=== PATIENT | female | born 1995 | race Caucasian/White ===

== ENCOUNTER 2018-04-12 12:49 | Emergency (ER) | payer OTHER ==
[2018-04-12] MEDS: NS 1,000 ML IV (13:30)
[2018-04-12] MEDS: ONDANSETRON 4MG/2ML VIAL (J2405) IV (13:30)
[2018-04-12 13:38] LABS: BASO # 0.1 10^3/uL (0.0-0.2); BASO % 0.8 % (0.0-1.0); EOS % 0.1 % (0.0-3.0); HEMATOCRIT 40.5 % (36.0-47.0); HEMOGLOBIN 13.6 g/dl (12.0-15.5); IMMATURE GRANULOCYTE % 0.1 % (0-3.0); LYMPH # 3.5 10^3/uL (1.5-6.5); LYMPH % 47.7 % (24.0-44.0); MEAN CORPUSCULAR HEMOGLOBIN 29.2 pg (27.0-33.0); MEAN CORPUSCULAR HGB CONC 33.6 g/dl (32.0-36.5); MEAN CORPUSCULAR VOLUME 87.1 fl (80.0-96.0); MONO # 0.4 10^3/uL (0.0-0.8); MONO % 5.8 % (0.0-5.0); NEUTROPHILS # 3.3 10^3/uL (1.8-7.7); NEUTROPHILS % 45.5 % (36.0-66.0); PLATELET COUNT, AUTOMATED 329 10^3/uL (150-450); RED BLOOD COUNT 4.65 10^6/uL (4.00-5.40); RED CELL DISTRIBUTION WIDTH 12.9 % (11.5-14.5); WHITE BLOOD COUNT 7.3 10^3/uL (4.0-10.0)
[2018-04-12 14:06] LABS: ALBUMIN 4.3 GM/DL (3.2-5.2); ALBUMIN/GLOBULIN RATIO 1.43 (1.00-1.93); ALKALINE PHOSPHATASE 67 U/L (45-117); ALT/SGPT 25 U/L (12-78); ANION GAP 7 MEQ/L (8-16); AST/SGOT 14 U/L (7-37); BILIRUBIN,DIRECT < 0.1 MG/DL (0.0-0.2); BILIRUBIN,TOTAL 0.3 MG/DL (0.2-1.0); BLOOD UREA NITROGEN 8 MG/DL (7-18); CALCIUM LEVEL 8.8 MG/DL (8.5-10.1); CARBON DIOXIDE LEVEL 22 MEQ/L (21-32); CHLORIDE LEVEL 110 MEQ/L (98-107); CREATININE FOR GFR 0.66 MG/DL (0.55-1.30); GLUCOSE, FASTING 86 MG/DL (70-100); LIPASE 120 U/L (73-393); POTASSIUM SERUM 3.9 MEQ/L (3.5-5.1); SODIUM LEVEL 139 MEQ/L (136-145); TOTAL PROTEIN 7.3 GM/DL (6.4-8.2)
[2018-04-12 14:08] LABS: CONTROL LINE HCG INT CTR LINE PRESENT; HCG, SERUM QUALITATIVE NEGATIVE (NEGATIVE)
[2018-04-12] MEDS: MORPHINE 4 MG/ML 1ML VIAL/SYRINGE (J2270) IV (14:19)
[2018-04-12] MEDS ORDERED: ISOVUE-370 76% 100ML VIAL (Q9967) As Ordered (14:25)
[2018-04-12 15:30] LABS: KETONE, URINE AUTO RFX NEGATIVE (NEGATIVE); LEUKOCYTE ESTERASE UR AUTO RFX NEGATIVE (NEGATIVE); MUCUS, URINE RFX SMALL (NEGATIVE); NITRITE, URINE AUTO RFX NEGATIVE (NEGATIVE); RBC, URINE AUTO RFX 2 /HPF (0-3); SPECIFIC GRAVITY UR AUTO RFX 1.019 (1.002-1.035); SQUAM EPITHELIAL CELL UR AURFX 9 /HPF (0-6); WBC, URINE AUTO RFX 5 /HPF (0-3)
== END 2018-04-12 16:08 | disposition home or self-care (01) ==
LOC: M ED 12:49
DX: R10.11 Right upper quadrant pain (principal)
CPT/HCPCS: J2270

== ENCOUNTER 2018-04-19 09:34 | Emergency (ER) | payer OTHER ==
[2018-04-19 10:58] LABS: BASO # 0.1 10^3/uL (0.0-0.2); BASO % 0.4 % (0.0-1.0); EOS % 0.1 % (0.0-3.0); HEMATOCRIT 43.1 % (36.0-47.0); HEMOGLOBIN 14.2 g/dl (12.0-15.5); IMMATURE GRANULOCYTE % 0.3 % (0-3.0); LYMPH # 2.8 10^3/uL (1.5-6.5); LYMPH % 24.5 % (24.0-44.0); MEAN CORPUSCULAR HGB CONC 32.9 g/dl (32.0-36.5); MONO # 0.7 10^3/uL (0.0-0.8); MONO % 6.1 % (0.0-5.0); NEUTROPHILS # 7.9 10^3/uL (1.8-7.7); NEUTROPHILS % 68.6 % (36.0-66.0); PLATELET COUNT, AUTOMATED 328 10^3/uL (150-450); RED CELL DISTRIBUTION WIDTH 12.9 % (11.5-14.5); WHITE BLOOD COUNT 11.6 10^3/uL (4.0-10.0)
[2018-04-19] MEDS: ONDANSETRON 4MG/2ML VIAL (J2405) IV (11:37)
[2018-04-19] MEDS: MORPHINE 2 MG/ML 1ML SYRINGE (J2270) IV ×2 (11:38→12:30)
[2018-04-19] MEDS: NS 1,000 ML IV (11:38)
[2018-04-19 11:59] LABS: KETONE, URINE AUTO RFX NEGATIVE (NEGATIVE); LEUKOCYTE ESTERASE UR AUTO RFX NEGATIVE (NEGATIVE); MUCUS, URINE RFX SMALL (NEGATIVE); NITRITE, URINE AUTO RFX NEGATIVE (NEGATIVE); RBC, URINE AUTO RFX 1 /HPF (0-3); SPECIFIC GRAVITY UR AUTO RFX 1.019 (1.002-1.035); SQUAM EPITHELIAL CELL UR AURFX 3 /HPF (0-6); WBC, URINE AUTO RFX 2 /HPF (0-3)
[2018-04-19 12:28] LABS: ANION GAP 8 MEQ/L (8-16); BLOOD UREA NITROGEN 8 MG/DL (7-18); CALCIUM LEVEL 8.8 MG/DL (8.5-10.1); CARBON DIOXIDE LEVEL 24 MEQ/L (21-32); CHLORIDE LEVEL 108 MEQ/L (98-107); CREATININE FOR GFR 0.74 MG/DL (0.55-1.30); GLUCOSE, FASTING 87 MG/DL (70-100); POTASSIUM SERUM 3.6 MEQ/L (3.5-5.1); SODIUM LEVEL 140 MEQ/L (136-145)
[2018-04-19] MEDS ORDERED: ISOVUE-370 76% 100ML VIAL (Q9967) As Ordered (12:45)
[2018-04-19] MEDS: NORCO, ANEXSIA 5/325MG TABLET (HYDROcodone/ACETAMINOPHEN) PO (14:12)
== END 2018-04-19 14:15 | disposition home or self-care (01) ==
LOC: M ED 09:34
DX: R10.31 Right lower quadrant pain (principal); R11.2 Nausea with vomiting, unspecified; R19.7 Diarrhea, unspecified; Z79.3 Long term (current) use of hormonal contraceptives; Z88.8 Allergy status to other drugs, medicaments and biological substances
CPT/HCPCS: J2405

== ENCOUNTER 2020-03-26 13:15 | Emergency (ER) | payer OTHER ==
[~2020-03-26] VITALS: Ht 154.9 cm; Wt 55.0 kg
[~2020-03-26 13:15] MED LIST: DICY1CAP8 PO; PERC5TAB12 PO; ZOFR4TAB14 PO
[2020-03-26] MEDS ORDERED: MORPHINE 2 MG/ML 1ML VIAL (J2270) IV PRN (13:30)
[2020-03-26] MEDS ORDERED: ONDANSETRON 4MG/2ML VIAL IV ONE (13:45)
[2020-03-26] MEDS ORDERED: NS 1,000 ML IV ONE ×2 (13:45→16:30)
[2020-03-26] MEDS ORDERED: ALPR1TAB3 PO (13:48)
[2020-03-26] MEDS ORDERED: PRAZ2CAP PO (13:48)
[2020-03-26] MEDS ORDERED: PRAZ1CAP PO (13:48)
[2020-03-26] MEDS ORDERED: VALP250S PO (13:48)
[2020-03-26 13:49] LABS: BASO # 0.1 10^3/uL (0.0-0.2); BASO % 0.6 % (0.0-1.0); HEMATOCRIT 44.6 % (36.0-47.0); LYMPH # 3.2 10^3/uL (1.5-5.0); LYMPH % 29.9 % (24.0-44.0); MEAN CORPUSCULAR HEMOGLOBIN 30.7 pg (27.0-33.0); MEAN CORPUSCULAR HGB CONC 33.6 g/dl (32.0-36.5); MEAN CORPUSCULAR VOLUME 91.2 fl (80.0-96.0); MONO # 0.6 10^3/uL (0.0-0.8); MONO % 5.8 % (0.0-5.0); NEUTROPHILS # 6.8 10^3/uL (1.5-8.5); NEUTROPHILS % 63.3 % (36.0-66.0); PLATELET COUNT, AUTOMATED 285 10^3/uL (150-450); RED BLOOD COUNT 4.89 10^6/uL (4.00-5.40); WHITE BLOOD COUNT 10.7 10^3/uL (4.0-10.0)
[2020-03-26] MEDS ORDERED: ISOVUE-370 76% 100ML VIAL As Ordered ONE (13:52)
[2020-03-26 14:00] LABS: INR 1.07; PROTHROMBIN TIME 14.1 SECONDS (12.5-14.3)
[2020-03-26 14:01] LABS: PARTIAL THROMBOPLASTIN TIME 27.9 SECONDS (24.2-38.5)
--- NOTE | 2020-03-26 14:33 | REP ---
INDICATION: Trauma. COMPARISON: Comparison CT study February 12, 2013.. TECHNIQUE: Helical scanning is acquired. 5 mm axial images were reformatted. Coronal MPR images were generated. FINDINGS: Bone window settings demonstrate an intact bony calvarium. There is no evidence of skull fracture or incidental bony calvarial lesion. The visualized paranasal sinuses appear clear. No intraorbital abnormality is seen. On soft tissue window setting images; the lateral, third, and fourth ventricles are normal in size and position. Villarrela-white differentiation pattern is normal above and below the tentorium. There are is no evidence of intracranial hemorrhage. No mass, edema, infarction, or midline shift is seen. No extra-axial fluid collection is appreciated. Preliminary director of scientific research views demonstrate intraoral Jewel Re. IMPRESSION: Negative noncontrast head CT. <Electronically signed by Nathan Luz > 03/26/20 [id number]
--- NOTE | 2020-03-26 14:34 | REP ---
INDICATION: Trauma. COMPARISON: None. TECHNIQUE: Helical scanning is acquired and overlapping 2 mm high resolution axial images were generated and reviewed at bone and soft tissue window settings. Coronal and sagittal multiplanar re-formations images are generated. FINDINGS: There is no evidence of cervical spine element fracture. No skull base fracture is seen. Cervical vertebral body heights are preserved. Alignment is normal. Facet joints are normally aligned bilaterally at each cervical level on multiplanar re-formations images. There is no evidence of intraspinal or paraspinal hematoma. No extra vertebral abnormality is seen. IMPRESSION: Negative CT study of the cervical spine without contrast. No fracture seen. <Electronically signed by Nathan Luz > 03/26/20 [id number]
--- NOTE | 2020-03-26 14:38 | REP ---
INDICATION: TRAUMA. COMPARISON: Comparison is made with imaging from CT study of the abdomen April 19, 2018. Intravenous contrast was administered.. TECHNIQUE: Helical scanning is acquired and 4 mm axial images re-formatted. Coronal and sagittal MPR images are generated and reviewed. FINDINGS: There is a mild levoconvex curve in the lumbar spine. Lumbar vertebral body heights are preserved. No fracture or collapse is seen. There is no evidence of spondylolysis or spondylolisthesis. There is partial lumbarization of S1. There is no posterior element or pedicle fracture. Transverse processes appear and spinous processes appear intact. No paravertebral soft tissue hematoma is seen. There is a hypoplastic rib on the left at L1. No sacral fracture is seen. IMPRESSION: No traumatic abnormality noted. Mild levoconvex curvature. <Electronically signed by Nathan Luz > 03/26/20 [id number]
--- NOTE | 2020-03-26 14:41 | REP ---
INDICATION: TRAUMA. COMPARISON: None. TECHNIQUE: Helical scanning is acquired and 4 mm axial images are generated. Coronal and sagittal MPR images are generated. Intravenous contrast has been administered. FINDINGS: There is a mild dextroconvex curvature in the thoracic spine. Thoracic vertebral body heights are preserved. Alignment is otherwise normal. No fracture is seen. Pedicles and posterior elements are intact. The visualized posterior ribs appear intact. No paravertebral soft tissue edema or hematoma is seen. There is a hypoplastic rib on the left side at L1. IMPRESSION: No thoracic spine fracture or subluxation is seen. <Electronically signed by Nathan Luz > 03/26/20 [id number]
--- NOTE | 2020-03-26 14:43 | REP ---
INDICATION: Trauma. COMPARISON: None. TECHNIQUE: CT chest performed following the intravenous administration of 100 cc of Isovue 370. Sagittal and coronal reconstruction images are performed. FINDINGS: Lungs: There is mild hazy atelectasis or infiltrate anteriorly in the right upper lobe. No pneumothorax. Mediastinum: No adenopathy. Mild anterior thymic tissue. Shaneka: No adenopathy. Axilla: No adenopathy. Pleura: No effusion. Heart: Not enlarged. Thoracic aorta: No aneurysm or dissection. Visualized osseous structures: There is no fracture of the visualized osseous structures. IMPRESSION: Mild hazy atelectasis or infiltrate anterior right upper lobe. <Electronically signed by Art Villarreal > 03/26/20 [id number]
--- NOTE | 2020-03-26 14:51 | REP ---
INDICATION: RUQ, LUQ abdominal pain. COMPARISON: 04/19/2018 CT TECHNIQUE: Bolus of 100 mL Isovue 370 scanning through the abdomen pelvis with coronal and sagittal reconstructions. FINDINGS: CT abdomen: The lung bases are clear. Heart is not enlarged. There is no pericardial thickening or effusion and no hiatal hernia. The liver, spleen, gallbladder and pancreas are without any acute finding. No biliary dilatation no evidence of ascites or free air in the upper abdomen. Stomach shows small amount of retained fluid but no abnormal distention or wall thickening adrenal glands are normal kidneys show symmetric enhancement without mass, stone, cyst or hydronephrosis. Aorta is unremarkable small bowel loops are fluid-filled without dilatation or air-fluid level. Abdominal portion of the colon show no sign of colitis diverticulitis or mass. The aorta and branch is unremarkable. The bony structures show lumbar and lower thoracic vertebral levels without compression fracture or destructive lesion no spondylolysis or spondylolisthesis. Lower ribs included were unremarkable. There is a levoconvex curvature to the lumbar spine which may be positional. CT pelvis sacrum, SI joints, bony pelvis and hips are without fracture or acute finding there is sacralization of the transverse processes of L5 as anatomic variation. Bladder well distended. Small amount of air seen in the bladder may reflect recent catheterization versus infection with gas producing organisms I see no evidence for penetrating trauma. Is no ventral or inguinal hernia or pathologic sized inguinal adenopathy. Uterus tilted towards the left no pelvic or adnexal mass or free fluid I see no pelvic lymphadenopathy. There are no inflammatory changes about the cecum and the appendix seen and normal small bowel loops in the deep pelvis were unremarkable abdominal and pelvic portions of colon were likewise unremarkable IMPRESSION: 1. Negative CT abdomen for solid organ injury, abdominal or pelvic free air or ascites nor any focal/acute bone abnormality. 2. Small amount of air within the bladder may be related to recent catheterization or infection with gas-forming organism. No evidence for penetrating trauma. 3. No hydronephrosis renal contusion or other acute finding. <Electronically signed by Saurabh Anthony > 03/26/20 [id number]
[2020-03-26] MEDS ORDERED: ACETAMINOPHEN 500 MG TAB PO ONE (15:00)
[2020-03-26 15:26] LABS: ALBUMIN 4.1 GM/DL (3.2-5.2); ALT/SGPT 14 U/L (12-78); BILIRUBIN,DIRECT 0.2 MG/DL (0.0-0.2); BILIRUBIN,TOTAL 0.9 MG/DL (0.2-1.0); ETHYL ALCOHOL (ETHANOL) < 0.003 % (0.000-0.010); TOTAL PROTEIN 7.1 GM/DL (6.4-8.2)
[2020-03-26 15:33] LABS: APPEARANCE, URINE CLEAR (CLEAR); BACTERIA, URINE AUTO NEGATIVE (NEGATIVE); BILIRUBIN, URINE AUTO NEGATIVE (NEGATIVE); BLOOD, URINE BLOOD NEGATIVE (NEGATIVE); COLOR, URINE STRAW (YELLOW); GLUCOSE, URINE (UA) AUTO NEGATIVE (NEGATIVE); KETONE, URINE AUTO NEGATIVE (NEGATIVE); LEUKOCYTE ESTERASE, URINE AUTO NEGATIVE (NEGATIVE); NITRITE, URINE AUTO NEGATIVE (NEGATIVE); PROTEIN, URINE AUTO NEGATIVE (NEGATIVE); RBC, URINE AUTO 1 /HPF (0-3); SPECIFIC GRAVITY URINE AUTO 1.029 (1.002-1.035); SQUAMOUS EPITHELIAL CELL UR AU 0 /HPF (0-6); UROBILINOGEN, URINE AUTO 0.2 mg/dL (0.0-2.0); WBC, URINE AUTO 0 /HPF (0-3)
[2020-03-26 16:06] LABS: AMPHETAMINES LEVEL URINE NEGATIVE (NEGATIVE); BARBITURATES URINE NEGATIVE (NEGATIVE); BENZODIAZEPINES URINE POSITIVE (NEGATIVE); CANNABINOIDS URINE POSITIVE (NEGATIVE); COCAINE METABOLITE URINE POSITIVE (NEGATIVE); METHADONE URINE NEGATIVE (NEGATIVE); OPIATES URINE POSITIVE (NEGATIVE); PHENCYCLIDINE URINE NEGATIVE (NEGATIVE)
[2020-03-26 17:31] VITALS: BP 99/68
--- NOTE | 2020-03-27 09:27 | ECGEPIP ---
[facility] - ED Test Date: 2020-03-26 Pat Name: GEN CORNEJO Department: Room: - Gender: Female Presser Hand: : [id number] Requested By: CESAR PRATT Order Number: [id number] Reading MD: Jesse Fleming Measurements Intervals [place] Rate: 76 P: 6 HI: 151 QRS: 61 QRSD: 105 T: 47 QT: 382 QTc: 431 Interpretive Statements SINUS RHYTHM INCOMPLETE RIGHT BUNDLE BRANCH BLOCK NO PRIORS FOR COMPARISON Electronically Signed on 03-27-2020 9:26:50 EST by Jesse Fleming
== END 2020-03-26 17:54 | disposition home or self-care (01) ==
LOC: M ED 13:15 → EDBD 13:15 → M ED 17:54
DX: S06.0X0A Concussion without loss of consciousness, initial encounter (principal); S30.1XXA Contusion of abdominal wall, initial encounter; S20.219A Contusion of unspecified front wall of thorax, initial encounter; V49.40XA Driver injured in collision with unspecified motor vehicles in traffic accident, initial encounter; I45.10 Unspecified right bundle-branch block; F31.9 Bipolar disorder, unspecified; Z88.8 Allergy status to other drugs, medicaments and biological substances; Z79.899 Other long term (current) drug therapy
CPT/HCPCS: 70450; 71260; 72125; 72128; 72131; 74177; 80047; 80076; 80307; 81001; 83605; 84702; 85025; 85610; 85730; 86850; 86900; 86901; 93005; 93041; 94760; 96361; 96374; 96375; 99285; G0480; J2270; J2405; Q9967

== ENCOUNTER 2021-12-16 19:09 | Emergency (ER) | payer OTHER, SELFPAY ==
[~2021-12-16] VITALS: Ht 154.9 cm; Wt 54.5 kg
[~2021-12-16 19:09] MED LIST changes: +ALPR1TAB3 PO; +PRAZ1CAP PO; +PRAZ2CAP PO; +VALP250S PO
[2021-12-16 19:10] VITALS: BP 177/79
[2021-12-16] MEDS ORDERED: NS 1,000 ML IV ONE (22:00)
[2021-12-16] MEDS ORDERED: ONDANSETRON 4MG 2ML VIAL IV ONE (22:00)
[2021-12-16 22:27] LABS: BASO % 0.2 % (0.0-1.0); HEMATOCRIT 48.2 % (36.0-47.0); HEMOGLOBIN 16.5 g/dl (12.0-15.5); LYMPH % 6.9 % (24.0-44.0); MEAN CORPUSCULAR HEMOGLOBIN 30.9 pg (27.0-33.0); MEAN CORPUSCULAR HGB CONC 34.2 g/dl (32.0-36.5); MEAN CORPUSCULAR VOLUME 90.3 fl (80.0-96.0); MONO # 0.8 10^3/uL (0.0-0.8); MONO % 5.5 % (2.0-8.0); NEUTROPHILS # 12.7 10^3/uL (1.5-8.5); NEUTROPHILS % 87.1 % (36.0-66.0); PLATELET COUNT, AUTOMATED 299 10^3/uL (150-450); RED BLOOD COUNT 5.34 10^6/uL (4.00-5.40); WHITE BLOOD COUNT 14.6 10^3/uL (4.0-10.0)
[2021-12-16] MEDS ORDERED: HALOPERIDOL 5MG/ML VIAL (J1630 PER 1) IV ONE (23:00)
[2021-12-16 23:08] LABS: ALT/SGPT 25 IU/L (0-32)
[2021-12-16 23:09] LABS: ALBUMIN 4.2 GM/DL (3.2-5.2); BILIRUBIN,DIRECT < 0.1 MG/DL (0.0-0.2); BILIRUBIN,TOTAL 0.4 MG/DL (0.2-1.0); TOTAL PROTEIN 8.1 GM/DL (6.4-8.2)
[2021-12-16 23:10] LABS: LIPASE 45 U/L (73-393)
[2021-12-16] MEDS ORDERED: diphenhydrAMINE 50MG/ML VIAL (J1200) IV ONE (23:55)
[2021-12-16] MEDS ORDERED: DICYCLOMINE INJ 20MG/2ML (J0500) IM ONE (23:55)
== END 2021-12-17 00:46 | disposition home or self-care (01) ==
LOC: M ED 19:09
DX: F12.188 Cannabis abuse with other cannabis-induced disorder (principal); K21.9 Gastro-esophageal reflux disease without esophagitis; F17.200 Nicotine dependence, unspecified, uncomplicated; Z88.8 Allergy status to other drugs, medicaments and biological substances; Z88.6 Allergy status to analgesic agent
CPT/HCPCS: 80047; 80076; 83690; 84702; 85025; 96361; 96372; 96374; 96375; 99283; J0500; J1200; J1630; J2405

== ENCOUNTER 2022-04-01 14:15 | Emergency (ER) | payer OTHER | END 2022-04-01 14:46 | disposition left against medical advice (07) | LOC: EDBD 14:15 → M ED 14:15 | DX: Z53.21 Procedure and treatment not carried out due to patient leaving prior to being seen by health care provider (principal) ==

== ENCOUNTER → 2022-05-05 | Outpatient (CLI) | payer OTHER | LOC: M PLALAB 14:02 | PROVIDERS: ATTEND Advanced Practice Midwife | DX: O28.5 Abnormal chromosomal and genetic finding on antenatal screening of mother (principal); Z3A.00 Weeks of gestation of pregnancy not specified ==

== ENCOUNTER → 2022-05-13 | Outpatient (CLI) | payer OTHER ==
[2022-05-13 16:19] LABS: HEMATOCRIT 39.7 % (36.0-47.0); HEMOGLOBIN 13.2 g/dl (12.0-15.5); MEAN CORPUSCULAR HEMOGLOBIN 31.1 pg (27.0-33.0); MEAN CORPUSCULAR HGB CONC 33.2 g/dl (32.0-36.5); MEAN CORPUSCULAR VOLUME 93.6 fl (80.0-96.0); PLATELET COUNT, AUTOMATED 273 10^3/uL (150-450); RED BLOOD COUNT 4.24 10^6/uL (4.00-5.40); WHITE BLOOD COUNT 8.1 10^3/uL (4.0-10.0)
[2022-05-13 17:04] LABS: HIV 1&2 SCREEN CENTAUR NEGATIVE (NEGATIVE)
[2022-05-13 17:13] LABS: HEPATITIS C VIRUS ABY INDEX 0.1 INDEX (<0.8)
[2022-05-13 17:41] LABS: HEMOGLOBIN A1c 4.6 % (4.0-6.0)
== END ==
LOC: M PLALAB 12:34
PROVIDERS: ATTEND Advanced Practice Midwife
DX: Z34.91 Encounter for supervision of normal pregnancy, unspecified, first trimester (principal); Z3A.00 Weeks of gestation of pregnancy not specified

== ENCOUNTER → 2022-07-09 | Outpatient (REF) | payer OTHER ==
[2022-07-09 16:16] LABS: GC DNA AMPLIFICATION NEGATIVE (NEGATIVE)
== END ==
LOC: M SFHCWAGY 13:01
PROVIDERS: ATTEND Advanced Practice Midwife
DX: Z34.91 Encounter for supervision of normal pregnancy, unspecified, first trimester (principal)

== ENCOUNTER → 2022-07-09 | Outpatient (CLI) | payer OTHER | LOC: M WHC 10:58 | PROVIDERS: ATTEND Advanced Practice Midwife | DX: Z34.82 Encounter for supervision of other normal pregnancy, second trimester (principal); Z3A.20 20 weeks gestation of pregnancy ==

== ENCOUNTER → 2022-09-09 | Outpatient (CLI) | payer OTHER | LOC: M LAB 07:31 | PROVIDERS: ATTEND Obstetrics & Gynecology | DX: Z34.92 Encounter for supervision of normal pregnancy, unspecified, second trimester (principal) ==

== ENCOUNTER 2022-10-17 07:10 | Outpatient (CLI) | payer OTHER ==
[~2022-10-17] VITALS: Ht 154.9 cm; Wt 64.0 kg
[2022-10-17 07:14] VITALS: BP 107/70
[2022-10-17 07:24] VITALS: BP 107/70
[2022-10-17] MEDS ORDERED: OMEP10CASR PO (07:39)
[2022-10-17] MEDS ORDERED: REGL10TA6 PO (07:39)
[2022-10-17] MEDS ORDERED: PRENTAB9 PO (07:39)
[2022-10-17] MEDS ORDERED: HOME MED LIST COMPLETE! XX SCH (07:40)
[2022-10-17 08:57] LABS: HEMATOCRIT 37.4 % (36.0-47.0); HEMOGLOBIN 12.5 g/dl (12.0-15.5); MEAN CORPUSCULAR HEMOGLOBIN 31.3 pg (27.0-33.0); MEAN CORPUSCULAR HGB CONC 33.4 g/dl (32.0-36.5); MEAN CORPUSCULAR VOLUME 93.5 fl (80.0-96.0); PLATELET COUNT, AUTOMATED 284 10^3/uL (150-450); WHITE BLOOD COUNT 9.3 10^3/uL (4.0-10.0)
[2022-10-17 09:25] LABS: ALBUMIN 2.9 G/DL (3.2-5.2); ALKALINE PHOSPHATASE 105 U/L (46-116); ALT/SGPT 13 U/L (7.0-40); AST/SGOT 27 U/L (<34); BILIRUBIN,TOTAL 0.3 MG/DL (0.3-1.2); BLOOD UREA NITROGEN < 5 MG/DL (9-23); CALCIUM LEVEL 8.2 MG/DL (8.5-10.1); CARBON DIOXIDE LEVEL 21 MMOL/L (20-31); CHLORIDE LEVEL 107 MMOL/L (98-107); CREATININE FOR GFR 0.41 MG/DL (0.55-1.30); GLOMERULAR FILTRATION RATE > 60.0 (>60); GLUCOSE, FASTING 90 MG/DL (60-100); POTASSIUM SERUM 4.5 MMOL/L (3.5-5.1); SODIUM LEVEL 138 MMOL/L (136-145); TOTAL PROTEIN 5.9 G/DL (5.7-8.2)
== END 2022-10-17 13:00 | disposition home or self-care (01) ==
LOC: M LDO 07:10
PROVIDERS: ATTEND Advanced Practice Midwife
DX: O99.613 Diseases of the digestive system complicating pregnancy, third trimester (principal); K31.84 Gastroparesis; Z3A.34 34 weeks gestation of pregnancy
CPT/HCPCS: 59025; 80053; 81001; 85027; G0463

== ENCOUNTER 2022-10-28 11:46 | Outpatient (CLI) | payer OTHER ==
[~2022-10-28] VITALS: Ht 154.9 cm; Wt 62.4 kg
[~2022-10-28 11:46] MED LIST changes: +OMEP10CASR PO; +PRENTAB9 PO; +REGL10TA6 PO
[2022-10-28 12:04] VITALS: BP 115/74
[2022-10-28] MEDS ORDERED: HOME MED LIST COMPLETE! XX SCH (12:05)
[2022-10-28] MEDS ORDERED: ONDANSETRON 4MG 2ML VIAL IV ONE ×2 (12:20→15:45)
[2022-10-28] MEDS ORDERED: LACTATED RINGER'S 1000 ML IV STA (12:20)
[2022-10-28] MEDS ORDERED: LR 1,000 ML IV SCH (12:20)
[2022-10-28 12:59] LABS: BASO # 0.1 10^3/uL (0.0-0.2); BASO % 0.5 % (0.0-1.0); EOS % 0.2 % (0.0-3.0); HEMATOCRIT 39.9 % (36.0-47.0); HEMOGLOBIN 13.7 g/dl (12.0-15.5); LYMPH # 2.2 10^3/uL (1.5-5.0); LYMPH % 19.7 % (24.0-44.0); MEAN CORPUSCULAR HEMOGLOBIN 31.9 pg (27.0-33.0); MEAN CORPUSCULAR HGB CONC 34.3 g/dl (32.0-36.5); MEAN CORPUSCULAR VOLUME 92.8 fl (80.0-96.0); MONO # 0.5 10^3/uL (0.0-0.8); MONO % 4.5 % (2.0-8.0); NEUTROPHILS # 8.3 10^3/uL (1.5-8.5); NEUTROPHILS % 74.4 % (36.0-66.0); PLATELET COUNT, AUTOMATED 305 10^3/uL (150-450); WHITE BLOOD COUNT 11.2 10^3/uL (4.0-10.0)
[2022-10-28 13:08] LABS: APPEARANCE, URINE HAZY (CLEAR); BACTERIA, URINE AUTO 1+ (NEGATIVE); BILIRUBIN, URINE AUTO NEGATIVE (NEGATIVE); BLOOD, URINE BLOOD NEGATIVE (NEGATIVE); COLOR, URINE AMBER (YELLOW); GLUCOSE, URINE (UA) AUTO NEGATIVE (NEGATIVE); KETONE, URINE AUTO 2+ mg/dL (NEGATIVE); LEUKOCYTE ESTERASE, URINE AUTO NEGATIVE (NEGATIVE); MUCUS, URINE SMALL (NEGATIVE); NITRITE, URINE AUTO NEGATIVE (NEGATIVE); PROTEIN, URINE AUTO 1+ mg/dL (NEGATIVE); RBC, URINE AUTO 0 /HPF (0-3); SPECIFIC GRAVITY URINE AUTO 1.021 (1.002-1.035); SQUAMOUS EPITHELIAL CELL UR AU 21 /HPF (0-6); WBC, URINE AUTO 1 /HPF (0-3)
[2022-10-28 13:26] LABS: LIPASE 25 U/L (12-53)
[2022-10-28 13:28] LABS: ALBUMIN 3.3 G/DL (3.2-5.2); ALKALINE PHOSPHATASE 141 U/L (46-116); ALT/SGPT 11 U/L (7.0-40); AST/SGOT 10 U/L (<34); BILIRUBIN,TOTAL 0.6 MG/DL (0.3-1.2); BLOOD UREA NITROGEN 5 MG/DL (9-23); CALCIUM LEVEL 8.5 MG/DL (8.5-10.1); CARBON DIOXIDE LEVEL 21 MMOL/L (20-31); CHLORIDE LEVEL 106 MMOL/L (98-107); CREATININE FOR GFR 0.43 MG/DL (0.55-1.30); GLOMERULAR FILTRATION RATE > 60.0 (>60); GLUCOSE, FASTING 81 MG/DL (60-100); POTASSIUM SERUM 3.8 MMOL/L (3.5-5.1); SODIUM LEVEL 138 MMOL/L (136-145); TOTAL PROTEIN 6.3 G/DL (5.7-8.2)
[2022-10-28 16:58] LABS: AMPHETAMINES URINE REFLEX NEGATIVE (NEGATIVE); BENZODIAZEPINES URINE REFLEX NEGATIVE (NEGATIVE)
[2022-10-28 16:59] LABS: BARBITURATES URINE REFLEX NEGATIVE (NEGATIVE); METHADONE URINE REFLEX NEGATIVE (NEGATIVE); OPIATES URINE REFLEX NEGATIVE (NEGATIVE); PHENCYCLIDINE URINE REFLEX NEGATIVE (NEGATIVE)
[2022-10-28 17:04] LABS: CANNABINOIDS URINE REFLEX PENDING CONFIRMATION (NEGATIVE); COCAINE METABOLITE URINE REFLE PENDING CONFIRMATION (NEGATIVE)
[2022-10-28] MEDS ORDERED: PROM1SUP2 PR (19:51)
[2022-10-28] MEDS ORDERED: CYCL-707 PO (19:52)
[2022-10-29 00:05] LABS: GC DNA AMPLIFICATION NEGATIVE (NEGATIVE)
== END 2022-10-28 20:00 | disposition home or self-care (01) ==
LOC: M LDO 11:46
PROVIDERS: ATTEND Specialist
DX: O21.8 Other vomiting complicating pregnancy (principal); O34.219 Maternal care for unspecified type scar from previous cesarean delivery; Z3A.36 36 weeks gestation of pregnancy
CPT/HCPCS: 36415; 76815; 76820; 80053; 80307; 81001; 83690; 85025; 87810; 87850; G0480; J2405

== ENCOUNTER → 2022-10-29 | Outpatient (REF) | payer OTHER ==
[~2022-10-29] MED LIST changes: +CYCL-707 PO; +PROM1SUP2 PR
== END ==
LOC: M PLALAB 12:46
PROVIDERS: ATTEND Obstetrics & Gynecology
DX: Z34.80 Encounter for supervision of other normal pregnancy, unspecified trimester (principal)

== ENCOUNTER 2022-11-01 15:04 | Inpatient (IN) | payer OTHER ==
[~2022-11-01] VITALS: Ht 154.9 cm; Wt 65.3 kg
[2022-11-01] VITALS (9 sets, daily range): BP systolic 100–124; BP diastolic 57–85; TEMP 96.7; O2SAT 98
[2022-11-01] MEDS ORDERED: HOME MED LIST COMPLETE! XX SCH (15:45)
[2022-11-01] MEDS ORDERED: LACTATED RINGER'S 1000 ML IV STA (16:07)
[2022-11-01] MEDS ORDERED: BICITRA 30ML SOLN UDC PO ONE (16:10)
[2022-11-01] MEDS ORDERED: METHYLERGONOVINE MALEATE 0.2MG/ML 1ML VIAL IM PRN (16:10)
[2022-11-01] MEDS ORDERED: OXYTOCIN DRIP 30 UNITS in IV 1 EA IV PRN (16:10)
[2022-11-01] MEDS ORDERED: LIDOCAINE 1% MDV 20ML VIAL INFIL PRN (16:10)
[2022-11-01] MEDS ORDERED: ACETAMINOPHEN 650MG SUPP PR ONE (16:10)
[2022-11-01] MEDS ORDERED: TRANEXAMIC ACID INJection 1,000 MG in NS 100 ML IV PRN (16:10)
[2022-11-01] MEDS ORDERED: LR 1,000 ML IV SCH ×2 (16:10→21:15)
[2022-11-01 16:56] LABS: HEMATOCRIT 37.7 % (36.0-47.0); MEAN CORPUSCULAR HEMOGLOBIN 31.7 pg (27.0-33.0); MEAN CORPUSCULAR HGB CONC 34.5 g/dl (32.0-36.5); PLATELET COUNT, AUTOMATED 317 10^3/uL (150-450); WHITE BLOOD COUNT 11.6 10^3/uL (4.0-10.0)
[2022-11-01] MEDS ORDERED: AZITHROMYCIN INJ 500 MG, VIAL MATE ADAPTER 1 EACH in NS 250 ML IV ONE (17:00)
[2022-11-01] MEDS ORDERED: ceFAZolin SOD 2 GM in IV 1 EA IV ONE (17:00)
[2022-11-01 17:17] LABS: AMPHETAMINES URINE REFLEX NEGATIVE (NEGATIVE); BARBITURATES URINE REFLEX NEGATIVE (NEGATIVE); BENZODIAZEPINES URINE REFLEX NEGATIVE (NEGATIVE); COCAINE METABOLITE URINE REFLE NEGATIVE (NEGATIVE); METHADONE URINE REFLEX NEGATIVE (NEGATIVE); OPIATES URINE REFLEX NEGATIVE (NEGATIVE); PHENCYCLIDINE URINE REFLEX NEGATIVE (NEGATIVE)
[2022-11-01 17:30] LABS: CANNABINOIDS URINE REFLEX PENDING CONFIRMATION (NEGATIVE)
[2022-11-01] MEDS ORDERED: ePHEDrine SULFATE 25 MG/5 ML(5MG/ML) SYRINGE As Ordered ONE (20:06)
[2022-11-01] MEDS ORDERED: ONDANSETRON 4MG 2ML VIAL As Ordered ONE (20:37)
[2022-11-01 20:41] LABS: CORD GAS O2 SAT A 41.5 %; CORD GAS PCO2 A 50.7 mmHg; CORD GAS PH A 7.293 UNITS; CORD GAS PO2 A 18.3 mmHg; CORD GAS SBC A 20.7 MMOL/L; CORD GAS TCO2 A 25.6 MMOL/L
[2022-11-01] MEDS ORDERED: MIDAZOLAM INJ 2MG/2ML VIAL As Ordered ONE (20:41)
[2022-11-01 20:45] LABS: CORD GAS ABE V -2.8; CORD GAS O2 SAT V 78.6 %; CORD GAS PCO2 V 38.7 mmHg; CORD GAS PH V 7.373 UNITS; CORD GAS PO2 V 33.3 mmHg; CORD GAS SBC V 21.7 MMOL/L; CORD GAS TCO2 V 23.2 MMOL/L
[2022-11-01] MEDS ORDERED: MORPHINE PRES-FREE INJ 10 MG/10 ML VIAL As Ordered ONE (21:04)
[2022-11-01] MEDS ORDERED: ANUSOL HC CREAM 30GM TOP PRN (21:15)
[2022-11-01] MEDS ORDERED: ONDANSETRON 4MG 2ML VIAL IV PRN (21:15)
[2022-11-01] MEDS ORDERED: METOCLOPRAMIDE INJ 10MG/2ML VIAL IV PRN ×2 (21:15→21:50)
[2022-11-01] MEDS ORDERED: RHOGAM 300MCG (1500IU) INJ IM SCH (21:15)
[2022-11-01] MEDS ORDERED: OXYTOCIN DRIP 30 UNITS in IV 1 EA IV SCH (21:15)
[2022-11-01] MEDS ORDERED: **NOTE PATIENT COMMENT** MISC XX SCH (21:50)
[2022-11-01] MEDS ORDERED: NALOXONE INJ 0.4MG/1ML VIAL IV PRN ×2 (21:50)
[2022-11-01] MEDS ORDERED: diphenhydrAMINE 50MG/ML VIAL IV PRN (21:50)
[2022-11-01] MEDS ORDERED: MORPHINE 2 MG/ML 1ML VIAL IV PRN (23:30)
[2022-11-01] MEDS ORDERED: PERCOCET 5MG/325MG TAB PO PRN (23:30)
[2022-11-02 00:02] VITALS: BP 116/71; O2SAT 98
[2022-11-02] MEDS ORDERED: ONDANSETRON 4MG ORAL DISINTEGRATING TAB SL PRN (01:10)
[2022-11-02 02:00] VITALS: BP 113/76
[2022-11-02] MEDS: ACETAMINOPHEN 500 MG TAB PO PRN ×2 (02:01→16:30)
[2022-11-02] MEDS: SLF 3 ML SYR IV SCH ×3 (04:48→12:37)
[2022-11-02] MEDS: PERCOCET 5MG/325MG TAB PO PRN ×3 (05:33→18:03)
[2022-11-02 06:00] VITALS: BP 109/72; O2SAT 97
[2022-11-02] MEDS: PRENATAL VITAMINS CHEWABLE TABLET PO SCH (08:05)
[2022-11-02] MEDS: METOCLOPRAMIDE 5 MG TAB PO SCH ×4 (08:05→21:06)
[2022-11-02] MEDS: DOCUSATE SODIUM 100MG CAPSULE PO SCH ×2 (08:06→21:06)
[2022-11-02] MEDS ORDERED: OMEPRAZOLE 20MG CAP PO SCH (09:00)
[2022-11-02 18:00] VITALS: BP 106/57; O2SAT 94
[2022-11-02] MEDS: OMEPRAZOLE 20MG CAP PO SCH (21:06)
[2022-11-03] MEDS: PERCOCET 5MG/325MG TAB PO PRN ×4 (00:14→18:23)
[2022-11-03] MEDS: SIMETHICONE 80MG CHEW TAB PO PRN ×2 (05:41→12:24)
[2022-11-03 06:00] VITALS: BP 117/60; O2SAT 98
[2022-11-03] MEDS: METOCLOPRAMIDE 5 MG TAB PO SCH ×4 (08:54→20:45)
[2022-11-03] MEDS: DOCUSATE SODIUM 100MG CAPSULE PO SCH ×2 (08:54→20:45)
[2022-11-03] MEDS: PRENATAL VITAMINS CHEWABLE TABLET PO SCH (08:55)
[2022-11-03] MEDS ORDERED: MEASLES,MUMPS,RUBELLA VACCINE INJ (MMR-II) SC.IMMUN ONE (09:00)
[2022-11-03 12:21] LABS: BASO # 0.1 10^3/uL (0.0-0.2); BASO % 0.4 % (0.0-1.0); EOS # 0.1 10^3/uL (0.0-0.5); EOS % 1.1 % (0.0-3.0); HEMATOCRIT 38.3 % (36.0-47.0); HEMOGLOBIN 13.1 g/dl (12.0-15.5); LYMPH % 26.7 % (24.0-44.0); MEAN CORPUSCULAR HEMOGLOBIN 31.5 pg (27.0-33.0); MEAN CORPUSCULAR HGB CONC 34.2 g/dl (32.0-36.5); MEAN CORPUSCULAR VOLUME 92.1 fl (80.0-96.0); MONO % 8.5 % (2.0-8.0); NEUTROPHILS # 7.1 10^3/uL (1.5-8.5); NEUTROPHILS % 62.9 % (36.0-66.0); PLATELET COUNT, AUTOMATED 298 10^3/uL (150-450); RED BLOOD COUNT 4.16 10^6/uL (4.00-5.40); WHITE BLOOD COUNT 11.3 10^3/uL (4.0-10.0)
[2022-11-03 12:47] LABS: ALKALINE PHOSPHATASE 139 U/L (46-116); ALT/SGPT 17 U/L (7.0-40); AST/SGOT 25 U/L (<34); BILIRUBIN,TOTAL 0.6 MG/DL (0.3-1.2); BLOOD UREA NITROGEN 6 MG/DL (9-23); CALCIUM LEVEL 8.8 MG/DL (8.5-10.1); CARBON DIOXIDE LEVEL 26 MMOL/L (20-31); CHLORIDE LEVEL 105 MMOL/L (98-107); CREATININE FOR GFR 0.49 MG/DL (0.55-1.30); GLOMERULAR FILTRATION RATE > 60.0 (>60); GLUCOSE, FASTING 80 MG/DL (60-100); POTASSIUM SERUM 3.9 MMOL/L (3.5-5.1); SODIUM LEVEL 137 MMOL/L (136-145)
[2022-11-03 16:49] VITALS: BP 112/79; O2SAT 99
[2022-11-03] MEDS: OMEPRAZOLE 20MG CAP PO SCH (20:45)
[2022-11-04] MEDS: PERCOCET 5MG/325MG TAB PO PRN ×2 (00:27→06:39)
[2022-11-04 06:00] VITALS: BP 110/58; O2SAT 98
[2022-11-04] MEDS: PRENATAL VITAMINS CHEWABLE TABLET PO SCH (08:33)
[2022-11-04] MEDS: DOCUSATE SODIUM 100MG CAPSULE PO SCH (08:33)
[2022-11-04] MEDS: METOCLOPRAMIDE 5 MG TAB PO SCH (09:00)
[2022-11-04] MEDS ORDERED: COLA100C5 PO (09:03)
[2022-11-04] MEDS ORDERED: OXYC-517 PO (09:03)
[2022-11-04] MEDS ORDERED: ACET-683 PO (09:03)
[2022-11-06 11:08] LABS: Cannabinoid Positive (.); Carboxy THC Conf, MS, UR >300 ng/mL (Cutoff=10)
== END 2022-11-04 11:52 | disposition home or self-care (01) | DRG 540 ==
LOC: M LDO 15:04 → M LDI 16:10 → M OBS 11-02 00:16
PROVIDERS: ADMIT Obstetrics & Gynecology; ATTEND Obstetrics & Gynecology
PROC: 10D00Z1 Extraction of Products of Conception, Low, Open Approach (ICD-10-PCS; principal; 2022-11-01 20:00)
DX: O60.14X0 Preterm labor third trimester with preterm delivery third trimester, not applicable or unspecified (principal); Z88.6 Allergy status to analgesic agent; Z37.0 Single live birth; Z3A.36 36 weeks gestation of pregnancy; O34.211 Maternal care for low transverse scar from previous cesarean delivery; Z88.8 Allergy status to other drugs, medicaments and biological substances; Z79.899 Other long term (current) drug therapy

== ENCOUNTER 2023-11-20 08:19 | Emergency (ER) | payer OTHER ==
[~2023-11-20] VITALS: Ht 154.9 cm; Wt 49.8 kg
[~2023-11-20 08:19] MED LIST changes: +ACET-683 PO; +COLA100C5 PO; +OXYC-517 PO
[2023-11-20] MEDS: TETRACAINE 0.5% OPHTH SOLN 4ML OD ONE (08:59)
[2023-11-20] MEDS: FLUORESCEIN OPHTH 1MG STRIP OD ONE (08:59)
[2023-11-20] MEDS: MORPHINE 4 MG/ML 1ML VIAL IV ONE (09:00)
[2023-11-20 11:12] VITALS: BP 120/86; TEMP 97.3; O2SAT 96
== END 2023-11-20 11:13 | disposition short-term general hospital (02) ==
LOC: M ED 08:19
DX: H53.131 Sudden visual loss, right eye (principal); S05.8X1A Other injuries of right eye and orbit, initial encounter; Y04.0XXA Assault by unarmed brawl or fight, initial encounter; H05.221 Edema of right orbit; F19.10 Other psychoactive substance abuse, uncomplicated; F10.10 Alcohol abuse, uncomplicated; F17.200 Nicotine dependence, unspecified, uncomplicated; E28.2 Polycystic ovarian syndrome; Z88.6 Allergy status to analgesic agent; Z88.8 Allergy status to other drugs, medicaments and biological substances; Z79.1 Long term (current) use of non-steroidal anti-inflammatories (NSAID); Z79.83 Long term (current) use of bisphosphonates; Z79.899 Other long term (current) drug therapy

== ENCOUNTER 2023-12-05 06:01 | Emergency (ER) | payer OTHER ==
[2023-12-05 07:39] LABS: BASO # 0.1 10^3/uL (0.0-0.2); BASO % 0.5 % (0.0-1.0); EOS % 0.1 % (0.0-3.0); HEMATOCRIT 47.3 % (36.0-47.0); HEMOGLOBIN 16.3 g/dl (12.0-15.5); LYMPH # 2.4 10^3/uL (1.5-5.0); MEAN CORPUSCULAR HEMOGLOBIN 31.7 pg (27.0-33.0); MEAN CORPUSCULAR HGB CONC 34.5 g/dl (32.0-36.5); MEAN CORPUSCULAR VOLUME 91.8 fl (80.0-96.0); MONO # 0.5 10^3/uL (0.0-0.8); MONO % 4.9 % (2.0-8.0); NEUTROPHILS % 72.1 % (36.0-66.0); PLATELET COUNT, AUTOMATED 374 10^3/uL (150-450); RED BLOOD COUNT 5.15 10^6/uL (4.00-5.40); WHITE BLOOD COUNT 11.1 10^3/uL (4.0-10.0)
[2023-12-05] MEDS ORDERED: ISOVUE-370 76% 100ML VIAL As Ordered ONE (07:58)
[2023-12-05 08:06] LABS: LIPASE 41 U/L (12-53)
[2023-12-05 08:08] LABS: ALBUMIN 4.3 G/DL (3.2-5.2); ALKALINE PHOSPHATASE 76 U/L (46-116); ALT/SGPT 21 U/L (7.0-40); AST/SGOT 13 U/L (<34); BILIRUBIN,DIRECT 0.3 MG/DL (<0.4); TOTAL PROTEIN 7.1 G/DL (5.7-8.2)
[2023-12-05] MEDS: ONDANSETRON 4MG 2ML VIAL IV ONE ×2 (08:13→10:21)
[2023-12-05] MEDS: MORPHINE 2 MG/ML 1ML VIAL IV ONE ×2 (08:28→11:05)
[2023-12-05] MEDS: NS 1,000 ML IV ONE (08:28)
[2023-12-05 09:13] LABS: BLOOD UREA NITROGEN 10 MG/DL (9-23); CALCIUM LEVEL 9.1 MG/DL (8.5-10.1); CARBON DIOXIDE LEVEL 26 MMOL/L (20-31); CHLORIDE LEVEL 103 MMOL/L (98-107); CREATININE FOR GFR 0.67 MG/DL (0.55-1.30); GLOMERULAR FILTRATION RATE > 60.0 (>60); GLUCOSE, FASTING 134 MG/DL (60-100); POTASSIUM SERUM 3.6 MMOL/L (3.5-5.1); SODIUM LEVEL 139 MMOL/L (136-145)
[2023-12-05] MEDS: LIDOCAINE 2% 5ML JELLY UROJET TOP ONE (09:50)
[2023-12-05] MEDS: MAALOX 30 ML SUSP *UDC PO ONE (10:48)
[2023-12-05 11:29] LABS: AMPHETAMINES LEVEL URINE NEGATIVE (NEGATIVE); BARBITURATES URINE NEGATIVE (NEGATIVE); BENZODIAZEPINES URINE NEGATIVE (NEGATIVE); METHADONE URINE NEGATIVE (NEGATIVE); PHENCYCLIDINE URINE NEGATIVE (NEGATIVE)
[2023-12-05 11:32] LABS: CANNABINOIDS URINE POSITIVE (NEGATIVE); COCAINE METABOLITE URINE POSITIVE (NEGATIVE); OPIATES URINE POSITIVE (NEGATIVE)
[2023-12-05] MEDS ORDERED: OMEP40CA4 PO (11:45)
[2023-12-05] MEDS ORDERED: SUCRALFATE 1 GM TAB PO ONE (11:45)
[2023-12-05] MEDS ORDERED: SUCR1SS PO (11:45)
[2023-12-05] MEDS: SUCRALFATE SUSP 1GM/10ML UD PO ONE (12:14)
[2023-12-05] MEDS: OMEPRAZOLE 20MG CAP PO ONE (12:15)
[2023-12-05 12:17] VITALS: BP 132/80; TEMP 97.8; O2SAT 95
== END 2023-12-05 13:13 | disposition home or self-care (01) ==
LOC: EDBD 06:01 → M ED 06:01
DX: A08.4 Viral intestinal infection, unspecified (principal); G90.A Postural orthostatic tachycardia syndrome [POTS]; F17.200 Nicotine dependence, unspecified, uncomplicated; F12.10 Cannabis abuse, uncomplicated; F10.10 Alcohol abuse, uncomplicated; Z88.6 Allergy status to analgesic agent; Z88.8 Allergy status to other drugs, medicaments and biological substances; Z79.83 Long term (current) use of bisphosphonates; Z79.899 Other long term (current) drug therapy; Z79.810 Long term (current) use of selective estrogen receptor modulators (SERMs)
CPT/HCPCS: 74177; 80048; 80076; 80307; 81001; 83690; 84702; 85025; 93005; 96361; 96374; 96375; 96376; 99284; J2405; Q9967